=== PATIENT | female | born 1950 | race Two or more races ===

== ENCOUNTER 2024-07-14 02:20 | Emergency (ER) | payer OTHER ==
[~2024-07-14] VITALS: Ht 165.1 cm; Wt 54.4 kg
[2024-07-14] MEDS ORDERED: TRAM1TAB98 PO (07:53)
== END 2024-07-14 08:09 | disposition home or self-care (01) ==
LOC: ER 02:20
DX: G89.11 Acute pain due to trauma (principal); M25.512 Pain in left shoulder; Z88.2 Allergy status to sulfonamides; Z91.041 Radiographic dye allergy status